=== PATIENT | female | born 1990 | race Caucasian/White ===

== ENCOUNTER → 2017-09-15 16:59 | Outpatient (CLI) | payer OTHER, SELFPAY ==
[2017-09-15 20:20] LABS: Chlamydia Trachomatis by PCR Negative (Negative); Neisserai gonorrhoeae by PCR Negative (Negative); Probe Check PASS; Sample Adequacy Control PASS; Specimen Processing Control PASS
== END ==
PROVIDERS: Visit Provider Nurse Practitioner Women's Health
DX: N89.8 Other specified noninflammatory disorders of vagina (principal)
CPT/HCPCS: 87070; 87077; 87106; 87186; 87205; 87491; 87591

== ENCOUNTER 2018-03-17 12:47 | Emergency (ER) | payer OTHER, SELFPAY ==
[2018-03-17 12:48] VITALS: BP 128/80; PULSE 73; RESP 15; TEMP 36.4; O2SAT 97; BMI 22.8
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
--- NOTE | 2018-03-17 14:43 | ED.DEP ---
ED Disposition - Plan for ED Patient: Chief Complaint: Other, Pain/Inj Referrals: Care Physician,No Primary [Primary Care Provider] - Clark Guzmán MD [STAFF PHYSICIAN] -
--- NOTE | 2018-03-17 14:45 | ED.DEP ---
ED Disposition - Plan for ED Patient: Chief Complaint: Other, Pain/Inj Instructions: ED Fx Mandible Referrals: Clark Guzmán MD [STAFF PHYSICIAN] - Care Physician,No Primary [Primary Care Provider] -
== END 2018-03-17 15:23 | disposition home or self-care (01) ==
LOC: ED 14:23
PROVIDERS: Emergency Provider Emergency Medicine
DX: R68.84 Jaw pain (principal); V43.52XA Car driver injured in collision with other type car in traffic accident, initial encounter; Y93.I9 Activity, other involving external motion; Y92.410 Unspecified street and highway as the place of occurrence of the external cause; Y99.8 Other external cause status
CPT/HCPCS: 70110; 99282

== ENCOUNTER → 2018-04-29 11:21 | Outpatient (CLI) | payer OTHER, SELFPAY ==
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
== END ==
PROVIDERS: Family Provider Family Medicine; PCP Family Medicine; Referring Provider Family Medicine; Visit Provider Family Medicine
DX: S16.1XXA Strain of muscle, fascia and tendon at neck level, initial encounter (principal)
CPT/HCPCS: 72050

== ENCOUNTER 2018-05-07 08:30 | Outpatient (RCR) | payer OTHER, SELFPAY ==
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
--- NOTE | 2018-05-07 09:20 | HP.PTREVAL_ITS ---
Clark Guzmán MD, It has been my pleasure to treat ROMAIN MCLEAN over the last 8 visits for Cervical Strain/Jaw Pain. Please see the progress note below for an update on the physical therapy plan of care! Subjective: Patient reports that she got blood work at the chiro who told her that her blood is very high levels of iron that they think are what is causing her symptoms. Physcial therapy is making very little progress and she feels its pretty muscular. She had a massage yesterday which made her feel better but not 100%- the pain comes back quickly. Objective/Function: Posture: Fh, RS- can correct but does not maintain- guarded. Gait: no deviation noted. Observation: right scapula increased winging vs. le ft. ROM: Cervical WNL- pain in all directions- greatest in forward flexion and SB to the left.- Jaw WNL but reports pain- Shoulder: WNL no pain at end ranges, Elbow/Wrist/hand: WNL. Strength: Scap: fair minus, Shoulder: 4+/5 throughout with pain with flexion and abduction. Elbow: 4+/5, Forensic Photographer: equal and strong. Palpation: significant tenderness throughout fascial musculature- including temporalis and masseter. Suboccipitals, cervical paraspinals, and lateral/anterior musculature to the neck are laden with trigger points and cause referred pain throughout UE and head. Trigger points continue through upper trap, medial border of the scapula and into the scapula. Plan Plan: Hold- will try massage and chiro with PCP for blood work results. At this time patient objective measures have not changes since initial evaluation. Goals Goal 1:: Patient will be I with HEP and progression Goal Time Frame: 4-6 Weeks Goal Progress: Progressing Goal 2:: Patient will maintain proper posture t/o tx session to demo increased scap s/s Goal Time Frame: 4-6 Weeks Goal Progress: Not Progressing Goal 3:: Patient will report no DE LA FUENTE for 1 week Goal Time Frame: 4-6 Weeks Goal Progress: Not Progressing Goal 4:: Patient will report 0/10 pain for 1 week and return to all normalized ADL's. Goal Time Frame: 4-6 Weeks Goal Progress: Not Progressing Anticipated Interventions Patient/Client Instruction: Educate patient on: Benefits of Fitness Program Therapeutic Exercise to Include: Strength training, Endurance training, Body mechanics, Postural training For the Purpose of:: To improve muscle performance and motor function Manual Therapy Techniques to Include: Mobilization, Functional dry needling, Soft tissue mobilization For the Purpose of:: To improve nutrient delivery to tissue TENS: Yes Cryotherapy (ice pack, ice massage): Yes Thermo therapy (hot pack): Yes Ultrasound (thermal/non thermal): Yes Please do not hesitate to contact me at [phone] by phone or if you have questions or concerns regarding this new plan of care! Sincerely, IMAN GarzaT
--- NOTE | 2018-08-26 10:56 | HP.PT.NRP ---
HP - Discharge Summary (1) - Patient Information ROMAIN MCLEAN was seen in my office for initial evaluation on 04/08/18. The following Plan of Care was established for this patient: Initial Frequency: 2x /Week Initial Duration: 4 Weeks - Anticipated Interventions Patient/Client Instruction: Educate patient on: Benefits of Fitness Program Therapeutic Exercise to Include: Strength training, Endurance training, Body mechanics, Postural training For the Purpose of:: To improve muscle performance and motor function Manual Therapy Techniques to Include: Mobilization, Functional dry needling, Soft tissue mobilization For the Purpose of:: To improve nutrient delivery to tissue TENS: Yes Cryotherapy (ice pack, ice massage): Yes Thermo therapy (hot pack): Yes Ultrasound (thermal/non thermal): Yes This patient was last seen in our office . Pertinent comments regarding their Physical therapy will appear below: Patient has not attended physical therapy is over 30 days- appropriate to be d/c from PT and return to MD as needed for further evaluation. At this point I will be discontinuing this patient from physical therapy. I would be happy to see this patient again in the future if found appropriate by the physician. Thank you! IMAN GarzaT
== END 2018-05-07 19:00 | disposition home or self-care (01) ==
LOC: PT 08:30
PROVIDERS: Family Provider Family Medicine; PCP Family Medicine; Referring Provider Family Medicine; Visit Provider Family Medicine
DX: S16.1XXD Strain of muscle, fascia and tendon at neck level, subsequent encounter (principal); S00.83XD Contusion of other part of head, subsequent encounter; V89.2XXD Person injured in unspecified motor-vehicle accident, traffic, subsequent encounter
CPT/HCPCS: 97035; 97140; 97162; 97164

== ENCOUNTER → 2018-05-20 13:52 | Outpatient (CLI) | payer OTHER, SELFPAY ==
[2018-05-20 14:03] VITALS: BP 106/60; PULSE 67; RESP 16; TEMP 36.9; O2SAT 96; BMI 22.8
[2018-05-20 14:30] VITALS: BP 102/61; PULSE 63
== END ==
PROVIDERS: Family Provider Family Medicine; PCP Family Medicine; Referring Provider Family Medicine; Visit Provider Family Medicine
DX: E83.119 Hemochromatosis, unspecified (principal)
CPT/HCPCS: 99195

== ENCOUNTER → 2020-08-28 13:18 | Outpatient (CLI) | payer SELFPAY ==
[2018-05-20 14:03] VITALS: BMI 22.8
== END ==
PROVIDERS: Visit Provider Student in an Organized Health Care Education/Training Program
DX: Z36.85 Encounter for antenatal screening for Streptococcus B (principal)
CPT/HCPCS: 87081

== ENCOUNTER → 2020-09-21 14:59 | Outpatient (CLI) | payer SELFPAY ==
[2018-05-20 14:03] VITALS: BMI 22.8
== END ==
PROVIDERS: Referring Provider Student in an Organized Health Care Education/Training Program; Visit Provider Student in an Organized Health Care Education/Training Program
DX: Z03.818 Encounter for observation for suspected exposure to other biological agents ruled out (principal)
CPT/HCPCS: 87635; C9803; U0005; U0003

== ENCOUNTER 2020-09-24 18:10 | Inpatient (IN) | payer SELFPAY ==
[2018-05-20 14:03] VITALS: BMI 22.8
[2020-09-24] VITALS (39 sets, daily range): BP systolic 99–135; BP diastolic 50–85; PULSE 63–112; TEMP 36.8–37.7; O2SAT 83–100; BMI 29.2
[2020-09-24] MEDS: Lactated Ringers 500 ML 999 ML IV ×2 (18:30→19:20)
[2020-09-24 18:32] LABS: Absolute Lymphocyte Count 4.31 X10^3/uL (0.83-4.51); Absolute Neutrophil Count 18.4 X10^3/uL (2.0-7.7); Basophil# 0.09 X10^3/uL; Basophil% 0.4 % (0-1); Eosinophils% 0.8 % (0-5); Hematocrit 41.2 % (37-47); Hemoglobin 13.6 g/dL (12.0-15.0); Lymphocyte # 4.31 X10^3/ul (0.83-4.51); Lymphocyte % 17.5 % (19-41); Mean Corpuscular Hgb 28.1 pg (27.0-32.0); Mean Corpuscular Volume 85.1 fL (81-99); Mean Platelet Vol. 10.3 fl (6.2-12.0); Monocyte# 1.56 X10^3/uL; Monocyte% 6.3 % (0-10); NRBC Flagged by Analyzer 0 % (0-5); Neutrophil # 18.36 X10^3/uL (2.7-7.7); Neutrophil % 74.3 % (47-70); POSITIVE DIFFERENTIAL YES; Platelet Count 521 K/mm3 (150-450); RBC Distribution Width CV 12.8 % (11.6-14.6); RBC Distribution Width SD 39.3 fl (35.1-43.9); Red Blood Count 4.84 M/mm3 (4.2-5.4); White Blood Count 24.7 K/mm3 (4.4-11.0)
[2020-09-24 18:39] LABS: Differential Indicated SCAN CRITERIA MET
[2020-09-24 19:16] LABS: Differential Comment SCANNED; Platelet Morphology LARGE
[2020-09-24] MEDS: fentaNYL-bupivacaine (epidural) 100 ML BAG EPIDURAL ×2 (19:27→23:42)
[2020-09-24] MEDS: Lactated Ringers 1,000 ML 200 ML IV ×2 (20:00→20:55)
[2020-09-25] VITALS (45 sets, daily range): BP systolic 90–146; BP diastolic 54–79; PULSE 59–116; RESP 16; TEMP 36.7–37.8; O2SAT 93–99
[2020-09-25] MEDS: Lactated Ringers 1,000 ML 200 ML IV (01:55)
[2020-09-25] MEDS: Lactated Ringers 500 ML 999 ML IV (03:04)
[2020-09-25] MEDS: fentaNYL-bupivacaine (epidural) 100 ML BAG EPIDURAL (04:56)
--- NOTE | 2020-09-25 04:56 | HP.PCM.OB_ITS ---
History and Physical Date of Admission: 09/24/20 Chief complaint: Contractions History of present illness: 29-year-old G1, P0 at 41 weeks and 0 days with MARVIN 09/18/2020 by LMP arrives with contractions. Denies headache, visual changes, chest pain, shortness of breath, nausea vomiting, right upper quadrant pain. Patient states good movement. Obstetrical history: G1: Current Past medical history: Hereditary spherocytosis Medications: None Past surgical history: Tonsils and adenoids, splenectomy, wisdom teeth extraction Social history: Denies smoking, alcohol use, drug use Allergies: Vicodin (delusions) Family history: Denies a history of DVT or PE Review of systems: Besides above pertinent positives a full review of systems was performed and found to be negative Physical exam: Vital signs: Blood pressure 105/63 pulse 84 pulse ox 99% on room air General: Normal-appearing no acute distress HEENT: Normocephalic atraumatic no cervical lymphadenopathy Cardiac/respiratory: No use of accessory muscles, nonlabored breathing Abdomen: Soft, nontender, gravid Pelvic exam: Cervical exam bulging bag 10/100/+1. AROM thin meconium Extremities: No peripheral edema normal peripheral pulses Psych: Normal affect normal demeanor nonpressured speech Assessment plan: 29-year-old G1, P0 at 41 weeks and 0 days in labor. AROM for thin meconium, educated patient on meconium and risk for aspiration. 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 now pushing. Admit labor and delivery CEFM GBS negative Hereditary spherocytosis: Will get CMP after delivery Anesthesia to see
--- NOTE | 2020-09-25 06:13 | PN_ITS ---
Progress Note Patient seen and examined, called to room for delivery. Upon evaluation cervix 10/100/+1. Educated patient that still has time for pushing. Patient currently pushing on hands and knees reexamined in supine position and cervical examination reconfirmed. Patient with minimal relief from epidural but overall mostly feeling pressure, educated patient on pressure versus sharp pains with epidural. Educated patient on pushing with contractions and positioning. We will continue pushing with contractions, coached on pushing. We will continue current management, personal investment adviser will be recontacted at time of delivery.
[2020-09-25] MEDS: Oxytocin 30 units/NS 500 ml 30 UNITS/500 ML IV.SOLN 334 UNITS IV (07:40)
[2020-09-25] MEDS: Methylergonovine 0.2 MG/ML Ampul IM (07:48)
--- NOTE | 2020-09-25 08:09 | EX.PCM.OBRPT ---
Vaginal Delivery Operative Information Date of Procedure: 09/25/20 Pre-Operative Diagnosis: Term Post-Operative Diagnosis: Term Findings Description of Procedure: Normal spontaneous vaginal delivery of a viable female , vertex RABIA. Head and shoulders delivered with ease. Cord cut clamped. Baby handed off to nursing. Placenta delivered via cord traction and fundal massage. Second-degree midline perineal laceration noted and repaired in typical fashion. EBL 400 cc urine output 100 cc. Prophylactic Methergine 0.2mg IM given
[2020-09-25] MEDS: Ibuprofen 600 MG Tablet PO ×2 (08:53→19:39)
[2020-09-25 12:13] LABS: Pathologist Review Reviewed
[2020-09-25 14:48] LABS: ALB/GLOB Ratio 0.6 RATIO (0.9-2.4); AST(SGOT) 41 U/L (15-37); Alanine Aminotransfer ALT/SGPT 20 U/L (13-56); Albumin, Serum 2.2 g/dL (3.2-5.0); Alkaline Phosphatase 159 U/L (45-117); Anion Gap 7 (5-15); BUN 5 mg/dL (7-18); BUN/Creat Ratio 8.4 RATIO (10-20); Calcium,Total 8.7 mg/dL (8.5-10.1); Chloride 109 mmol/L (98-107); Creatinine, Serum 0.59 mg/dL (0.55-1.02); EST Glomerular Filtration Rate 125 mL/min (>60); Est Glom Filt Rate - Afr Amer 152 mL/min (>60); Estimated Creatinine Clearance 115.33 ml/min; Globulin 3.4 g/dL (2.2-4.2); Glucose 120 mg/dL (74-106); Potassium 3.7 mmol/L (3.5-5.1); Protein, Total 5.6 g/dL (6.4-8.2); Sodium Level 139 mmol/L (136-145)
[2020-09-26] VITALS (9 sets, daily range): BP systolic 90–111; BP diastolic 47–67; PULSE 58–80; RESP 16–18; TEMP 36.6–36.8; O2SAT 96–97
[2020-09-26] MEDS: Ibuprofen 600 MG Tablet PO ×2 (07:14→18:46)
--- NOTE | 2020-09-26 10:25 | PCM.PN.OB ---
Subjective Subjective No overnight complaints. Pain well controlled. Objective Data Objective Data Vital Signs: Vital Signs Temp Pulse Resp BP Pulse Ox 98.3 F 58 L 16 99/57 L 96 09/26/20 08:35 09/26/20 08:35 09/26/20 08:35 09/26/20 08:35 09/26/20 08:35 Oxygen Delivery Method Room Air Weight: 165 lb 2.02 oz Body Mass Index (BMI) 29.2 Intake & Output: Intake and Output for Last 24 Hours 09/24/20 09/25/20 09/26/20 23:59 23:59 23:59 Intake Total 1176.67 / 1176.67 2998.22 / 2998.22 Output Total 400 / 400 2100 / 2100 Balance 776.67 / 776.67 898.22 / 898.22 Lab / Micro Data Result Diagrams: 09/24/20 18:20 09/25/20 13:50 Labs: Laboratory Results - last 24 hr 09/24/20 09/25/20 18:20 13:50 Diff Path Review Reviewed Sodium 139 Potassium 3.7 Chloride 109 H Carbon Dioxide 23.0 Anion Gap 7 BUN 5 L Creatinine 0.59 Estim Creat Clear Calc 115.33 Est GFR (MDRD) Af Amer 152 Est GFR (MDRD) Non-Af 125 BUN/Creatinine Ratio 8.4 L Glucose 120 H Calcium 8.7 Total Bilirubin 0.40 AST 41 H ALT 20 Alkaline Phosphatase 159 H Total Protein 5.6 L Albumin 2.2 L Globulin 3.4 Albumin/Globulin Ratio 0.6 L Physical Exam Const alert, oriented x3, no apparent distress and average body habitus HEENT normocephalic Head and Scalp: atraumatic Neck full ROM and no lymphadenopathy Resp normal respiratory effort, no retractions and no use of accessory muscles GI normal to inspection, nondistended, normoactive bowel sounds Narrative: Uterus firm and below umbilicus Extremity normal to inspection, full ROM and no clubbing, cyanosis or edema Psych mental status grossly normal, affect normal, speech normal and activity/motor behavior normal Assessment & Plan (1) : PLAN: day 1. Breast-feeding. Pain well controlled. Hereditary spherocytosis, overall labs stable. 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
--- NOTE | 2020-09-26 10:26 | PCM.DC ---
Discharge Instructions Diet Discharge Diet: No restrictions Activity Discharge Activity: Return to Normal Activity and May Shower May resume sexual activity in: 4-6 weeks Weight Bearing Status: Weight bearing as tolerated Dressing / Incision Call your doctor if your incision/area has: Continuous Slow Oozing, Sudden Increased Bleeding and Foul Smelling Discharge Call your doctor if you observe: Fever of 101 or Higher, Shortness of breath and Chest pain Follow Up Care Please Follow Up With: Sadaf Guzmán DO When: 2-week telehealth visit, 4 to 6-week visit Test Results: Test results from this visit will be discussed in further detail at your follow-up appointment, if applicable. Discharge Plan Admission Admit Date/Time: 09/24/20 18:10 Attending Provider: Kyle Guzmán Primary Care Provider: Care PhysicianLe Primary Discharge Orders/Prescriptions Prescriptions: No Action 400 mcg Tablet,Chewable 1 tab PO DAILY RF: 0 Disposition Discharge Orders: Discharge Patient (Routine); Ordered 09/26/20 Ordered By: Dr. Kyle Guzmán
[2020-09-26] MEDS: Senna/Docusate Sodium 1 Tablet PO (14:31)
--- NOTE | 2020-09-26 14:44 | CHAPLAIN ---
Type of Pastoral Visit _x__ Initial Visit ___ Follow-up Visit ___ On-call Visit ___ General Patient Visit ___ Spiritual Assessment ___ Family Conference ___ Bereavement ___ Rapid Response ___ Code Blue ___ Other (describe below) Pastoral Care Referral From ___ Patient _x__ Family ___ Nurse ___ Physician ___ Wheat Combine Driver ___ Shaving Machine Operator ___ Other (describe below) Sacrament/Intervention _x__ Active listening ___ Anointing ___ Yarsanism ___ Bereavement ___ Communion ___ Gunjan exploration ___ _x__ Life review ___ Prayer ___ Reconciliation ___ Sacrament of Sick ___ Supportive presence ___ Wedding ___ Other (describe below) Pastoral Comments
[2020-09-27 01:08] VITALS: BP 102/72; PULSE 81; RESP 18; TEMP 36.9
[2020-09-27 01:09] VITALS: BP 102/72; PULSE 81
[2020-09-27 07:46] VITALS: BP 115/56; PULSE 80
[2020-09-27 07:56] VITALS: BP 115/56; PULSE 80; RESP 16; TEMP 36.9
--- NOTE | 2020-09-27 08:31 | PN.OBGYN_ITS ---
Subjective Subjective day 2 status post . Breast-feeding. Pain controlled, lochia minimal. Per patient baby's bilirubin will be checked again this afternoon at 2 PM. Objective Data Objective Data Vital Signs: Vital Signs Temp Pulse Resp BP Pulse Ox 98.5 F 80 16 115/56 L 97 09/27/20 07:56 09/27/20 07:56 09/27/20 07:56 09/27/20 07:56 09/26/20 17:29 Oxygen Delivery Method Room Air Weight: 74.9 kg Body Mass Index (BMI) 29.2 Intake & Output: Intake and Output for Last 24 Hours 09/25/20 09/26/20 09/27/20 23:59 23:59 23:59 Intake Total 2998.22 / 2998.22 Output Total 2100 / 2100 Balance 898.22 / 898.22 Lab / Micro Data Result Diagrams: 09/24/20 18:20 09/25/20 13:50 ROS Constitutional Constitutional: Reports systems reviewed and no addt'l complaints, except as documented Eyes Eyes: Reports systems reviewed and no addt'l complaints, except as documented ENT HEENT: Reports systems reviewed and no addt'l complaints, except as documented Cardiovascular Cardiovascular: Reports systems reviewed and no addt'l complaints, except as documented Respiratory/Chest Respiratory/Chest: Reports systems reviewed and no addt'l complaints, except as documented Gastrointestinal Gastrointestinal: Reports systems reviewed and no addt'l complaints, except as documented Genitourinary Genitourinary: Reports systems reviewed and no addt'l complaints, except as documented Musculoskeletal Musculoskeletal: Reports systems reviewed and no addt'l complaints, except as documented Integumentary Integumentary: Reports systems reviewed and no addt'l complaints, except as documented Neurologic Neurologic: Reports systems reviewed and no addt'l complaints, except as documented Psychiatric Psychiatric: Reports systems reviewed and no addt'l complaints, except as doc umented Endocrine Endocrinology: Reports systems reviewed and no addt'l complaints, except as documented Hematologic/Lymphatic Hematologic/Lymphatic: Reports systems reviewed and no addt'l complaints, except as documented Allergic/Immunologic Allergic/Immunologic: Reports systems reviewed and no addt'l complaints, except as documented Physical Exam Const alert, oriented x3 and no apparent distress HEENT normocephalic Head and Scalp: atraumatic Resp normal respiratory effort Cardio regular rate GI normal to inspection, nondistended, normoactive bowel sounds GI Narrative: Uterus 2 cm below umbilicus. Firm Extremity normal to inspection Extremity Narrative: Trace pedal edema. Neuro no focal motor deficits and no sensory deficits noted Assessment & Plan (1) Vaginal delivery: PLAN: day 2. Breast-feeding. Plan to discharge home today pending baby's bilirubin check this afternoon, [facility] Very slight elevation in AST, repeat CMP ordered today. (2) Hereditary spherocytosis:
[2020-09-27] MEDS: Ibuprofen 600 MG Tablet PO (11:53)
[2020-09-27 14:50] VITALS: BP 120/55; PULSE 86; RESP 16; TEMP 37.7
[2020-09-27 14:55] VITALS: BP 120/55; PULSE 86
[2020-09-27 15:23] LABS: ALB/GLOB Ratio 0.7 RATIO (0.9-2.4); AST(SGOT) 36 U/L (15-37); Alanine Aminotransfer ALT/SGPT 26 U/L (13-56); Albumin, Serum 2.3 g/dL (3.2-5.0); Alkaline Phosphatase 119 U/L (45-117); Anion Gap 6 (5-15); BUN 5 mg/dL (7-18); BUN/Creat Ratio 9.4 RATIO (10-20); Chloride 107 mmol/L (98-107); Creatinine, Serum 0.53 mg/dL (0.55-1.02); EST Glomerular Filtration Rate 143 mL/min (>60); Est Glom Filt Rate - Afr Amer 173 mL/min (>60); Estimated Creatinine Clearance 128.39 ml/min; Globulin 3.3 g/dL (2.2-4.2); Glucose 124 mg/dL (74-106); Potassium 3.6 mmol/L (3.5-5.1); Protein, Total 5.6 g/dL (6.4-8.2); Sodium Level 141 mmol/L (136-145)
== END 2020-09-27 18:30 | disposition home or self-care (01) | DRG 807 ==
LOC: WPOUT 18:14 → WP 18:14
PROVIDERS: Student in an Organized Health Care Education/Training Program; Admitting Provider Obstetrics & Gynecology; Referring Provider Obstetrics & Gynecology; Visit Provider Obstetrics & Gynecology
DX: O99.12 Other diseases of the blood and blood-forming organs and certain disorders involving the immune mechanism complicating childbirth (principal); Z37.0 Single live birth; D58.0 Hereditary spherocytosis; Z3A.41 41 weeks gestation of pregnancy; O77.0 Labor and delivery complicated by meconium in amniotic fluid; O70.1 Second degree perineal laceration during delivery
CPT/HCPCS: 59025; 59050; 80053; 85025; 86850; 86900; 86901; 99218; J7120; G0378

== ENCOUNTER → 2023-03-12 | Outpatient (CLI) | payer SELFPAY ==
[2023-03-17 08:12] LABS: Chlamydia By Nucleic Acid AMP Negative (Negative); Gonococcus By Nucleic Acid AMP Negative (Negative)
== END | disposition home or self-care (01) ==
PROVIDERS: Referring Provider Advanced Practice Midwife; Visit Provider Advanced Practice Midwife
DX: Z34.90 Encounter for supervision of normal pregnancy, unspecified, unspecified trimester (principal)
CPT/HCPCS: 87086; 87491; 87591

== ENCOUNTER → 2023-04-01 | Outpatient (CLI) | payer SELFPAY ==
[2023-04-01 12:30] LABS: NATERA MAILED SPECIMEN
[2023-04-01 12:35] LABS: Absolute Lymphocyte Count 3.74 X10^3/uL (0.83-4.51); Absolute Neutrophil Count 13.1 X10^3/uL (2.0-7.7); Basophil# 0.07 X10^3/uL; Basophil% 0.4 % (0-1); Eosinophil# 0.33 X10^3/uL; Eosinophils% 1.8 % (0-5); Hematocrit 40.2 % (37-47); Hemoglobin 13.8 g/dL (12.0-15.0); Lymphocyte # 3.74 X10^3/ul (0.83-4.51); Lymphocyte % 20.1 % (19-41); Mean Corp Hgb Conc 34.3 g/dL (32-36); Mean Corpuscular Hgb 30.6 pg (27.0-32.0); Mean Corpuscular Volume 89.1 fL (81-99); Mean Platelet Vol. 9.5 fl (6.2-12.0); Monocyte# 1.17 X10^3/uL; Monocyte% 6.3 % (0-10); NRBC Flagged by Analyzer 0 % (0-5); Neutrophil # 13.13 X10^3/uL (2.7-7.7); Neutrophil % 70.6 % (47-70); Platelet Count 493 K/mm3 (150-450); RBC Distribution Width CV 12.7 % (11.6-14.6); RBC Distribution Width SD 41.5 fl (35.1-43.9); Red Blood Count 4.51 M/mm3 (4.2-5.4); White Blood Count 18.6 K/mm3 (4.4-11.0)
[2023-04-01 13:43] LABS: HIV - WCH Non-Reactive (Nonreactive); Hepatitis B Surface Antigen Non-Reactive (Nonreactive); Hepatitis C Antibody Non-Reactive (Nonreactive); Rubella IgG Reactive (Nonreactive); Syphilis Antibodies Non-reactive
== END | disposition home or self-care (01) ==
LOC: LAB 11:23
PROVIDERS: PCP Internal Medicine; Referring Provider Advanced Practice Midwife; Visit Provider Advanced Practice Midwife
DX: Z34.90 Encounter for supervision of normal pregnancy, unspecified, unspecified trimester (principal)
CPT/HCPCS: 36415; 85025; 86703; 86762; 86780; 86803; 86850; 86900; 86901; 87340

== ENCOUNTER → 2023-05-26 | Outpatient (CLI) | payer SELFPAY ==
--- NOTE | 2023-05-26 15:26 | US_ITS ---
EXAM: US SECOND OR THIRD TRIMESTER , TRANSABDOMINAL CLINICAL INDICATION: anatomy TECHNIQUE: Transabdominal obstetrical ultrasound of the maternal pelvis and a second or third trimester with image documentation. COMPARISON: No relevant prior studies available. FINDINGS: FETUS: There is an intrauterine gestation. HEART RATE: heart rate is 148 beats per minutes. PRESENTATION: The fetus is in a cephalic presentation. PLACENTA: Placenta is posterior. There is a marginal placenta previa present. AMNIOTIC FLUID: Unremarkable. ANATOMY: Four-chamber heart, diaphragm, stomach, three-vessel cord and cord insertion, kidneys, bladder, spine and extremities were all visualized. There is a small echogenic focus seen within the left ventricle. BIOMETRICS GESTATIONAL AGE: Gestational age 20 weeks 0 days. MARVIN: MARVIN 10/13/2023. EFW: Estimated weight 66 g. BPD: Biparietal diameter 4.7 cm age 20 weeks 0 days, 53rd percentile. HC: Head circumference 17.4 cm age 20 weeks 0 days, 40th percentile. AC: Abdominal circumference 15.6 cm age 20 weeks 5 days, 70th percentile. FL: Femur length 3.2 cm age 19 weeks 6 days, 38th percentile. MATERNAL: UTERUS: Unremarkable. No myometrial mass. CERVIX: The cervix measures 4.4 cm. ADNEXA: Unremarkable. No adnexal masses. FREE FLUID: Maximum vertical pocket of fluid 3.6 cm. US/OB Anatomy w/ Transvaginal IMPRESSION: 1. Intrauterine gestation with an average ultrasound age of 20 weeks 1 day and an ultrasound estimated due date of 10/12/2023. heart rate is 148 beats per minutes. 2. Echogenic intracardiac focus. Electronically Signed: Kaiser Chilel MD at 0:09 EST ,
--- OUTSIDE RECORDS SUMMARY | 2023-05-26 15:44 | XMS RPT_ITS | CCD ---
Author Name Unknown Address [address] [place] [address] Organization [facility] Care Team Providers Care Cmm Programmer Name Role Phone Ignacia Briceno Unavailable Unavailable IGNACIA BRICENO MD Primary Care Physician [phone] YARIEL CASTELLON, SERENITY Attending Unavailable IGNACIA BRICENO MD Primary Care Unavailable Unavailable Primary Care Provider UnavailURVASHI Win Attending Unavailable URVASHI IMLNER Referring Unavailable URVASHI MILNER Attending Unavailable Allergies Allergy Classification Reported Allergen(s) Allergy Type Date of Onset Reaction(s) Facility (1 source) Acetaminophen / HYDROcodone; Translations: [acetaminophen-hyd rocodone] Drug Allergy [facility] Medications Current Medications Medication Drug Class(es) Dates Sig (Normalized) Sig (Original) AD oral tablet (1 source) Start: 02-23-2023 take 1 tablet by mouth once daily AD oral tablet Dose = 1 tab(s), Oral, Daily, # 30 tab(s), 0 Refill(s) Start Date: 02/23/23 Status: Ordered Completed/Discontinued Medications Medication Drug Class(es) Dates Sig (Normalized) Sig (Original) PNV no.95/ferrous fum/folic ac ( ORAL) (1 source) PNV no.95/ferrou s fum/folic ac ( ORAL) Take by mouth. 0 Active Problems Active Problems Problem Classification Problem Date Documented Date Episodic/Chronic Administrative/social admission (2 sources) Encounter for blood-alcohol and blood-drug test; Translations: [Encounter for blood-alcohol and blood-drug test] Onset: 02-23-2023 Episodic Deficiency and other anemia (1 source) Hereditary spherocytosis 02-23-2023 Chronic Immunizations and screening for infectious disease (4 sources) Encounter for screening for infections with a predominantly sexual mode of transmission; Translations: [Encounter for screening for human papillomavirus (HPV)] Onset: 02-23-2023 Episodic Other female genital disorders (1 source) History of abnormal cervical Papanicolaou smear 02-23-2023 Episodic Past or Other Problems Problem Classification Problem Date Documented Da te Episodic/Chronic Unclassified (1 source) ELEVATED IRON,KETONES IN URINE Onset: 10-21-2017 NEGATED: Highlighted row has been ruled out!Unclassified (1 source) No known active problems 03-05-2023 Results Test Name Value Interpretation Reference Range Facil ity Encounters Encounter Date Encounter Type Care Provider Facility Start: 03-05-2023 End: 03-05-2023 Patient encounter procedure Urvashi Phanrios AGRICULTURAL RESEARCH TECHNICIAN.CNM Work Phone: OB/Gynecology Procedures Date Procedure Procedure Detail Performing Clinician Start: 03-05-2023 Us uterus l imited 1/> fetuses Urvashi Milner AGRICULTURAL RESEARCH TECHNICIAN.CNM Work Phone: Splenectomy SERENITY SALDIVAR MD Tonsillectomy and adenoidectomy SERENITY SALDIVAR MD Plan of Treatment Date Care Activity Detail Author Start: 12-26-2022 Influenza vaccination Influenza Vacc ine (#1) [facility] Start: 04-27-2022 Depression Assessment Depression Ass essment [facility] Start: 10-05-2019 HPV Testing HPV Testing [facility] Start: 2010 Pap Testing Pap Testing [facility] Start: 2008 Urine microalbumin profile DTa P,Tdap,Td Vaccine (1 - Tdap) [facility] Start: 10-05-2007 Hepatitis C Screening Hepatitis C Md juan ramon [facility] Start: 10-05-2007 HIV Screening HIV Screening [facility] Start: 04-05-1990 Covid-19 Vaccine (#1) Covid-19 Vacci ne (#1) [facility] Start: 1989 Hepatitis B Vaccine (1 of 3 - 3-dose series) Hepatitis B Vaccine (1 of 3 - 3-dose series) [facility] Payers Date Payer Category Payer Unknown [id number] 1989 Unknown [id number] Social History Date Type Detail Facility Start: 02-23-2023 End: 03-05-2023 Tobacco smoking status Never smoked tobacco (finding) [facility] Sex Assigned At Sex [facility] Start: 03-05-2023 Tobacco use and exposure Smokeless tobacco non-user [facility] Start: 03-05-2023 Alcohol intake Ex-drinker (finding) [facility] Start: 03-05-2023 History of Social function [facility] Start: 03-05-2023 Tobacco use panel [facility] National Score (1-100), lower number is lower risk 41 [facility] Start: 01-21-2023 [facility] Start: 1989 Sex Assigned At Not on file C [facility] Progress note 03-05-2023 Note Date & Type Note Facility 03-05-2023 Note HNO ID: [id number] Author: Urvashi Milner APRN.CNM Service: ? Author Type: Gas Plant Technician Type: Progress Notes Filed: 03/05/2023 2:55 PM Note Text: OB point of care ultrasound was performed. See imaging tab for details. Urvashi Milner APRN.CNM [facility] Progress note 03-05-2023 Note Date & Type Note Facility 03-05-2023 Note HNO ID: [id number] Author: Urvashi Milner APRN.CNM Service: ? Author Type: Gas Plant Technician Type: Progress Notes Filed: 03/05/2023 3:29 PM Note Text: INITIAL OB ASSESSMENT OB Provider: Urvashi Milner APRN CNM HPI: Maddy is a 32 year old No obstetric history on file. White here to establish Obstetrical Care. Patient's last menstrual period was 12/10/2022. from OB Dating Form. Cycles regular was planned Feb 2022- spontaneous miscarriage- no DANDC Cycles around every 36 days lasting 4 days- not heavy LMP 11/25/22- Had US and MARVIN was changed to 10/13/22 Complaints: None OB History T1 L1 SAB1 IAB0 Ectopic0 Multiple0 Live Births1 Previous history: Prior : never History of 4th degree laceration: No History of shoulder dystocia: No History of Hypertensive disorders including pre-eclampsia, chronic hypertension or gestational hypertension: No History of gestational diabetes: No Patient's Risk Screening for delivery: Have you had a prior zhang between 20w and 36w6d?: No MEDICAL/PSYCHOSOCIAL HISTORY: History of hemorrhage or bleeding concerns: No Thyroid Disease: No History of chronic hypertension: No History of pre-existing diabetes: No No results found for: ABORHD BMI 24.15 kg/(m2) History of abnormal pap: Yes Prior treatment for cervical dysplasia: none. 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 I don't have enough money to pay my bills: Never Within the past 12 months, have you worried that your food would run out before you had money to buy more: Never In the past 12 months, has lack of reliable transportation kept you from going to medical appointments or work, or from keeping things needed for daily living: Never In the past 12 months, have you had any concerns about having a place to live, or about the condition or quality of your housing: Never Are there any cultural or spiritual needs we should be aware of: No Depression/Anxiety Screening: denies symptoms of depression. OB Depression and Anxiety Screening- This Encounter (since 03/04/2023) Over the past 2 weeks have you felt down, depressed, or hopeless? Negative Over the past two weeks, have you felt little interest or pleasure in doing things?? Negative Feeling nervous, anxious or on edge 0-Not at all Not being able to stop or control worrying 0-Not al all Anxiety Pre-Screening Total (If >/= 3 additional questions will be reviewed) 0 Genetic Screening: Partner present: No Patient verbalized knowledge of partner family health history: Yes Do you or your partner have any personal or family history of defects not previously discussed: No Do you have history of a complicated by anomaly, genetic condition, or demise: No ACOG Recommended Screening Screening for early gestational diabetes testing: Criteria for early testing requires elevated BMI plus one other risk factor: BMI 24.15 kg/(m2) (risk factor if > than 25 or 23 in Americans) Additional risk factors: None She does not meet ACOG criteria for early gestational DM screening. 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 No pertinent past medical history. History reviewed. No pertinent surgical history. Current Outpatient Medications Medication Sig Dispense Refill PNV no.95/ferrous fum/folic ac ( ORAL) Take by mouth. No current facility-administered medications for this visit. Allergies As of Date: 03/05/2023 (No Known Allergies) Fully Assessed 03/05/2023 Does patient have penicillin allergy: No REVIEW OF SYSTEMS: GENERAL: Negative for: Fever or Chills and Positive for: Fatigue HEENT: Negative for: Headache, Impaired Vision, Ringing in Ears, Nosebleeds NECK: Negative for: Swelling, Pain, Stiffness RESPIRATORY: Negative for: Cough, Shortness of breath, Wheezing GASTROINTESTINAL: Negative for: Heartburn, Constipation, Diarrhea, Blood in stool, Vomiting and Positive for: Constipation [facility] (more content not included)... [facility] History of Present illness Narrative 03-05-2023 Urvashi Milner APRN.CNM - 03/05/2023 2:54 PM EST Note Date & Type Note Facility 03-05-2023 History of Presen t illness Narrative OB point of care ultrasound was performed. See imaging tab for details. Urvashi Milner APRN.CNM documented in this encounter [facility] Clinical Note 02-26-2023 Note Date & Type Note Facility 02-26-2023 Note . MICRO - Microbiology PROCEDURE: Urine Culture [*1] SOURCE: Urine, Clean Catch BODY SITE: COLLECTED DATE/TIME: 02/23/2023 17:00 EDT RECEIVED DATE/TIME: 02/24/2023 20:02 EDT START DATE/TIME: 02/24/2023 20:02 EDT FREE TEXT SOURCE: FINAL REPORTS Final Report [] Verified Date/Time/Personnel: 02/26/2023 08:05 EDT <10,000 cfu/ml. No Significant growth. Sensitivity not indicated. PRELIMINARY REPORTS Preliminary Report [] Verified Date/Time/Personnel: 02/25/2023 09:23 EDT No growth to date Performing Locations *1: This test was performed at: [facility], [address] [place] [address], [facility] , [facility] ([place]) Evaluation + Plan note Note Date & Type Note Facility Evaluation + Plan note Future Appointments Appointment Date:03/23/2023 03:45:00 PM Scheduled Provider:SERENITY SALDIVAR MD Location:[facility] Appointment Type:[facility] OB Routine Follow Up Diagnostic Tests PendingHPV Screen, DNA Probe 02/23/23 [facility] Evaluation note Note Date & Type Note Facility documented in this encounter [facility] course Narrative Note Date & Type Note Facility Hospital course Narrative No data available for this section [facility] Hospital Discharge instructions Note Date & Type Note Facility Hospital Discharge instructions No data available for this section [facility] Progress note Note Date & Type Note Facility Progress note No data available for this section [facility] Summary Purpose Family History No Family History Records Found No data available for this section No Family History Records FoundNo Family History Records Found Advance Directives No Advanced Directives Records FoundNo Advanced Directives Records FoundNo Advanced Directives Records Found Additional Source Comments INFORMATION SOURCE (unrecogn ized section and content) DATE CREATED AUTHOR AUTHOR'S ORGANIZ ATION 03/03/2023 [facility] ([place]) DATE CREATED AUTHOR AUTHOR'S ORGANIZ ATION 03/09/2023 [facility] Patient Care team informatio n (unrecognized section and content) Care Team Personnel Name: IGNACIA BRICENO MD Position: AH Physician Member Role: Primary Care Physician Address: Address: [address] [facility] [address] [place], [place] [address] Care Team Related Persons Name: PARAM MCLEAN Source Comments (unrecognize d section and content) In the event this informatio n is protected by the Federal Confidentiality of Alcohol and Drug Abuse Patient Records regulations: The Federal rules restrict any use of the information to criminally investigate or prosecute any alcohol or drug abuse patient.[facility] FOR RECORDS PERTAINING TO PATIENTS WHO ARE OR HAVE BEEN ENROLLED IN A CHEMICAL DEPENDENCY/SUBSTANCEABUSE PROGRAM, SOME INFORMATION MAY BE OMITTED. This clinical summary was aggregated from multiple sources. Caution should be exercised in using it in the provision of clinical care. This summary normalizes information from multiple sources, and as a consequence, information in this document may materially change the coding, format and clinical context of patient data. In addition, data may be omitted in some cases. CLINICAL DECISIONS SHOULD BE BASED ON THE PRIMARY CLINICAL RECORDS. [employer] [facility]. provides no warranty or guarantee of the accuracy or completeness of information in this document.
== END | disposition home or self-care (01) ==
PROVIDERS: PCP Internal Medicine; Referring Provider Obstetrics & Gynecology; Visit Provider Obstetrics & Gynecology
DX: Z34.91 Encounter for supervision of normal pregnancy, unspecified, first trimester (principal)
CPT/HCPCS: 76805; 76817

== ENCOUNTER → 2023-07-16 | Outpatient (CLI) | payer SELFPAY ==
[2023-07-16 14:55] LABS: Absolute Lymphocyte Count 3.64 X10^3/uL (0.83-4.51); Absolute Neutrophil Count 13.1 X10^3/uL (2.0-7.7); Basophil# 0.07 X10^3/uL; Basophil% 0.4 % (0-1); Eosinophil# 0.93 X10^3/uL; Eosinophils% 4.9 % (0-5); Hematocrit 35.6 % (37-47); Hemoglobin 12.3 g/dL (12.0-15.0); Lymphocyte # 3.64 X10^3/ul (0.83-4.51); Lymphocyte % 19.1 % (19-41); Mean Corp Hgb Conc 34.6 g/dL (32-36); Mean Corpuscular Hgb 30.7 pg (27.0-32.0); Mean Corpuscular Volume 88.8 fL (81-99); Mean Platelet Vol. 9.3 fl (6.2-12.0); Monocyte# 1.17 X10^3/uL; Monocyte% 6.1 % (0-10); NRBC Flagged by Analyzer 0 % (0-5); Neutrophil # 13.12 X10^3/uL (2.7-7.7); Neutrophil % 68.6 % (47-70); Platelet Count 459 K/mm3 (150-450); Red Blood Count 4.01 M/mm3 (4.2-5.4); White Blood Count 19.1 K/mm3 (4.4-11.0)
[2023-07-16 15:04] LABS: Glucose Challenge Gest 1H 50g 110 mg/dL (70-140)
[2023-07-16 15:38] LABS: HIV - WCH Non-Reactive (Nonreactive); Syphilis Antibodies Non-reactive
== END | disposition home or self-care (01) ==
PROVIDERS: Obstetrics & Gynecology; PCP Internal Medicine; Referring Provider Obstetrics & Gynecology; Visit Provider Obstetrics & Gynecology
DX: O09.90 Supervision of high risk pregnancy, unspecified, unspecified trimester (principal); Z3A.00 Weeks of gestation of pregnancy not specified
CPT/HCPCS: 36415; 82950; 85025; 86703; 86780

== ENCOUNTER → 2023-07-28 | Outpatient (CLI) | payer SELFPAY ==
--- NOTE | 2023-07-28 10:03 | US_ITS ---
STUDY: SECOND AND THIRD TRIMESTER OBSTETRICAL ULTRASOUND - LIMITED REASON FOR EXAM: Female, 32 years old 28 wk placental location LMP: 01/06/2023 PRIOR ULTRASOUND: No relevant prior comparison study available TECHNIQUE: Transabdominal pelvic ultrasound. TECHNICAL QUALITY: Adequate. FINDINGS: There is a single intrauterine fetus. The fetus is in a cephalic presentation. There is demonstrated cardiac activity with a heart rate of 125 bpm. There is a normal amniotic fluid volume. The largest amniotic fluid pocket measures 12.2 cm. The The placenta is posterior in location and is not low lying. There are Grade 1 placental changes. The cervix measures 5 cm in length. BIOMETRY: Not performed US/OB Limited (No Biometrics) IMPRESSION: Single live intrauterine . Posterior placenta. Electronically Signed: Curtis Damian MD at 6:59 EDT ,
== END | disposition home or self-care (01) ==
LOC: US 10:02
PROVIDERS: PCP Internal Medicine; Referring Provider Obstetrics & Gynecology; Visit Provider Obstetrics & Gynecology
DX: O44.22 Partial placenta previa NOS or without hemorrhage, second trimester (principal); Z3A.25 25 weeks gestation of pregnancy
CPT/HCPCS: 76815

== ENCOUNTER 2023-08-24 13:35 | Outpatient (CLI) | payer SELFPAY ==
[2023-08-24 14:36] VITALS: BMI 29.5
[2023-08-24 14:40] VITALS: BP 106/70; PULSE 95
--- NOTE | 2023-08-24 15:38 | OB.TRI.HP_ITS ---
HPI - General General Date of Service: 08/24/23 Chief Complaint: decreased movement HPI Narrative ROMAIN MCLEAN, is a 32 F who presents at 32.5 with decreased movement since last night, presents for wellbeing check denies ctx/lof/vb. Maternal Data Information MARVIN Calculator Estimated Delivery Date Method Current WG Current Estimate 10/14/23 Ultrasound #1 32w 5d PFSH PFSH Medical History Back problem Miscarriage Vaginal delivery Home Medications vitamins no.144-folic acid 400 mcg chewable tablet () 1 tab PO DAILY 09/24/20 [History Last Taken 09/23/20] Allergy/AdvReac Type Severity Reaction Status Date / Time No Known Drug Allergies AdvReac Mild Other Verified 08/13/23 09:20 Family History Mother Spherocytosis, hereditary Daughter Spherocytosis, hereditary Surgical History History of tonsillectomy and adenoidectomy S/P splenectomy Social History adopted: No household members: spouse and children number of children: 1 current occupational status: employed 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 [employer] pets and animals: Yes pets and animals: dog(s) history of recent travel: Yes ([place]) out of state: Yes out of country: No sexually active: Yes Smoking Status: Never smoker Electronic Cigarette Use: not used alcohol intake: current details: occasionally- not while substance use type: does not use well-balanced diet: daily or most days caffeine: Yes Type: coffee Number of servings: 1 eating out: rarely or never during the past year weight has: remained stable what type of physical activity do you participate in: walking frequency: daily duration: 30-45 minutes/day augusto/sabianist: Presybeterian seatbelt use: always do you feel safe at home: Yes additional social history: Xhtulmc-Lxpkl-Hcjmamkrqe Auditor 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 Date Name GA/Weeks Outcome Route Bth Weight Gen Labor Lgth Anesthesia Del Locatn Provider FOB 09/25/20 Marlyn 41 live - full term 8#8oz Female 24 ho urs epidural [facility] Dr.James Guzmán [place] Delivery Date: 09/25/20 Last Updated by: Marry Sneed epidural was not effective Visit Details Expected Delivery Route/Plan Labor Preferences- CB/BF classes: [] labor support person: [] labor intervention preferences: [] pain management options preferred: [] cut cord/dad catch: [] : [] PP control planned: [] discussed possible routes of delivery and associated risks: [] special requests: [] Plans Covid status: Flu vaccine: declines Tdap vaccine: declines Rhogam: na LARC form signed: declined movement and labor precautions reviewed. Problem list reviewed and updated with the most current plan of care details and appropriate orders placed. Relevant counseling for the gestational age provided. Continue routine care and follow up unless otherwise noted in visit notes/problem list details OB Flowsheet Initial Weight: Not Recorded Date -?-?-?-?-?-?-?-?-?-?-?-?- EGA Weight BP Urine Prot -?-?-?-?-?-?-?-?-?-?-?-?- Glucose FHR FuHt Pres Dilation -?-?-?-?-?-?-?-?-?-?-?-?- Effaced St Visit Note 03/12/23 -?-?-?-?-?-?-?-?-?-?-?-?- 9w 1d 127 lb 2 oz 100/72 -?-?-?-?-?-?-?-?-?-?-?-?- 168 -?-?-?-?-?-?-?-?-?-?-?-?- KW-CRL cons with dates. Desires NIPT KW-CRL cons with dates. Edie res NIPT. Discussed spherocytosis-declines MFM consult at this time due to being self pay. 04/07/23 -?-?-?-?-?-?-?-?-?-?-?-?- 12w 6d 133 lb 4 oz 99/62 Nega tive -?-?-?-?-?-?-?-?-?-?-?-?- Negative 150 -?-?-?-?-?-?-?-?-?-?-?-?- kw-no vb/crampin g. no concerns. having some headaches and seeing chiropractor. will call [facility] to see cost of US prior to placing order. 05/06/23 -?-?-?-?-?-?-?-?-?-?-?-?- 17w 0d 138 lb 6 oz 94/58 Nega tive -?-?-?-?-?-?-?-?-?-?-?-?- Negative 147 -?-?-?-?-?-?-?-?-?-?-?-?- JV- no cramping or spotting. plan to increase fluids for headaches. has anatomy scan at [facility] for self pay. 06/03/23 -?-?-?-?-?-?-?-?-?-?-?-?- 21w 0d 144 lb 6 oz 102/58 Nega tive -?-?-?-?-?-?-?-?-?-?-?-?- Negative 145 -?-?-?-?-?-?-?-?-?-?-?-?- JV- no lof, vagi nal bleeding, or cramping. marginal placental previa. ultrasound for 28 weeks ordered. 07/01/23 -?-?-?-?-?-?-?-?-?-?-?-?- 25w 0d 153 lb 4 oz 109/67 Nega tive -?-?-?-?-?-?-?-?-?-?-?-?- Negative 156 -?-?-?-?-?-?-?-?-?-?-?-?- JV- no lof, vagi nal bleeding, or dec fm. needs to schedule rpt scan of placenta. 07/16/23 -?-?-?-?-?-?-?-?-?-?-?-?- 27w 1d 157 lb 6 oz 106/70 Nega tive -?-?-?-?-?-?-?-?-?-?-?-?- Negative 150 28 -?-?-?-?-?-?-?-?-?-?-?-?- KW- no vb/lof/ct x. good fm. Repeat US in 2 weeks. Travel precautions, going to [place] 08/05/23 -?-?-?-?-?-?-?-?-?-?-?-?- 30w 0d 159 lb 4 oz 159 lb 6.4 oz 97/64 Negative -?-?-?-?-?-?-?-?-?-?-?-?- Negative 144 32 -?-?-?-?-?-?-?-?-?--?-?-?- JV- no complaint s today. + FM. name is a surprise. 08/13/23 -?-?-?-?-?-?-?-?-?-?-?-?- 31w 1d 161 lb 102/65 Negative -?-?-?-?-?-?-?-?-?-?-?-?- Negative 140 32 -?-?-?-?-?-?-?-?-?-?-?-?- SM- no vb lof go od fm no regular ctx larc signed Physical Exam Const alert, oriented x3 and no apparent distress Resp normal respiratory effort, normal air movement, no retractions and no use of accessory muscles Cardio regular rate and regular rhythm GI soft to palpation and non-tender Inspection: Palpation: soft Rectal Exam: deferred no CVA tenderness and external exam normal Bimanual Exam - Vag & Uterus: uterus non-tender and other gravid uterus, normal for gestational age OB / External & Speculum: Negative for herpetic lesions Manual OB Exam: estimated gestational size appropriate and presentation cephalic Amniotic Fluid: no amniotic fluid noted Extremity normal to inspection and full ROM Neuro Motor Exam: strength 5/5 throughout and muscle tone normal throughout Deep Tendon Reflexes: Rt Patellar (L4): 2+ and Lt Patellar (L4): 2+ NST FHR Rate Baby A Baseline: 140 Variability:: Moderate Accelerations:: 15 x 15 Decelerations:: None NST Reactive:: Yes FHR Category:: Category I Assessment & Plan (1) Decreased movement: COMMENT: reactive NST PLAN: Patient presents for triage evaluation secondary to decreased movement. PO hydrated for non painful contractions, not dilated. FHT: Moderate variability reactive no decelerations category I tracing [place]: irreg Contractions Assessment and plan: Reactive NST, reassuring maternal and status patient discharged to home to follow-up in office. See problem list details for additional plan information. Charges/Coding Visit Charges Office Visits / Consults: 58054 OP Consult L3 Procedures Urinary/Genital 52xxx-59xxx: 53462-45 non-stress test Interp Multi Select Codes Urinary/Genital Urinary/Genital CPT Codes: 14143-35 non-stress test Interp
== END 2023-08-24 15:42 | disposition home or self-care (01) ==
LOC: WPOUT 13:41 → WP 13:41
PROVIDERS: PCP Internal Medicine; Referring Provider Registered Nurse; Visit Provider Registered Nurse
DX: O36.8130 Decreased fetal movements, third trimester, not applicable or unspecified (principal); Z3A.32 32 weeks gestation of pregnancy
CPT/HCPCS: 59025; 59050; 99221; G0378

== ENCOUNTER → 2023-09-17 | Outpatient (CLI) | payer SELFPAY | END | disposition home or self-care (01) | LOC: LABSPEC 16:58 | PROVIDERS: PCP Internal Medicine; Referring Provider Obstetrics & Gynecology; Visit Provider Obstetrics & Gynecology | DX: O09.90 Supervision of high risk pregnancy, unspecified, unspecified trimester (principal); Z3A.00 Weeks of gestation of pregnancy not specified | CPT/HCPCS: 87081 ==

== ENCOUNTER 2023-10-21 19:29 | Inpatient (IN) | payer SELFPAY ==
[2023-10-21] VITALS (12 sets, daily range): BP systolic 107–132; BP diastolic 55–80; PULSE 66–101; RESP 16; TEMP 36.3–36.6; O2SAT 94–100; BMI 29.8
[2023-10-21] MEDS: Lactated Ringers 1,000 ML 50 ML IV (19:35)
[2023-10-21 19:58] LABS: Absolute Lymphocyte Count 5.67 X10^3/uL (0.83-4.51); Absolute Neutrophil Count 13.3 X10^3/uL (2.0-7.7); Basophil# 0.09 X10^3/uL; Basophil% 0.4 % (0-1); Eosinophil# 0.39 X10^3/uL; Eosinophils% 1.9 % (0-5); Hematocrit 36.9 % (37-47); Hemoglobin 12.3 g/dL (12.0-15.0); Lymphocyte # 5.67 X10^3/ul (0.83-4.51); Lymphocyte % 26.9 % (19-41); Mean Corp Hgb Conc 33.3 g/dL (32-36); Mean Corpuscular Volume 81.1 fL (81-99); Mean Platelet Vol. 9.7 fl (6.2-12.0); Monocyte# 1.47 X10^3/uL; NRBC Flagged by Analyzer 0 % (0-5); Neutrophil # 13.26 X10^3/uL (2.7-7.7); Neutrophil % 62.9 % (47-70); POSITIVE DIFFERENTIAL YES; Platelet Count 590 K/mm3 (150-450); RBC Distribution Width CV 13.3 % (11.6-14.6); RBC Distribution Width SD 39.3 fl (35.1-43.9); Red Blood Count 4.55 M/mm3 (4.2-5.4); White Blood Count 21.1 K/mm3 (4.4-11.0)
[2023-10-21 20:02] LABS: Differential Indicated SCAN CRITERIA MET
[2023-10-21 20:28] LABS: Differential Comment SCANNED
[2023-10-21 20:39] LABS: Syphilis Antibodies Non-reactive
--- NOTE | 2023-10-21 21:13 | HP.PCM.OB_ITS ---
HPI - General General Date of Admission: 10/21/23 HPI Narrative ROMAIN MCLEAN, is a 33 F who presents IAL no vb lof admits good fm now 5-6 cm. IAL. 41 weeks Maternal Data Information MARVIN Calculator Estimated Delivery Date Method Current WG Current Estimate 10/14/23 Ultrasound #1 41w 0d PFSH PFSH Medical History Back problem Miscarriage Vaginal delivery Allergy/AdvReac Type Severity Reaction Status Date / Time No Known Drug Allergies AdvReac Mild Other Verified 10/21/23 19:28 Family History Mother Spherocytosis, hereditary Daughter Spherocytosis, hereditary Surgical History History of tonsillectomy and adenoidectomy S/P splenectomy Social History adopted: No household members: spouse and children number of children: 1 current occupational status: employed 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 [employer] pets and animals: Yes pets and animals: dog(s) history of recent travel: Yes ([place]) out of state: Yes out of country: No sexually active: Yes Smoking Status: Never smoker Electronic Cigarette Use: not used alcohol intake: current details: occasionally- not while substance use type: does not use well-balanced diet: daily or most days caffeine: Yes Type: coffee Number of servings: 1 eating out: rarely or never during the past year weight has: remained stable what type of physical activity do you participate in: walking frequency: daily duration: 30-45 minutes/day augusto/methodist: Methodist seatbelt use: always do you feel safe at home: Yes additional social history: Isbytdh-Ebarz-Fyoewthmha 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 Date Name GA/Weeks Outcome Route Bth Weight Infant Gen Labor Lgth Anesthesia Del Locatn Provider FOB 09/25/20 Emersen 41 live - full term 8#8oz Female 24 ho urs epidural [facility] Dr.James Ramirez [place] Delivery Date: 09/25/20 Last Updated by: Marry Sneed epidural was not effective Visit Details Expected Delivery Route/Plan Labor Preferences- CB/BF classes: labor support person: kelli, mother- Igancio Mclean labor intervention preferences: [] pain management options preferred: epidural wasnt effective last time. has hist ory of spinal fusion. open to anything. cut cord/dad catch yes : yes PP control planned: NFP discussed possible routes of delivery and associated risks: [] special requests: [] Plans Covid status: Flu vaccine: declines Tdap vaccine: declines Rhogam: na LARC form signed: declined movement and labor precautions reviewed. Problem list reviewed and updated with the most current plan of care details and appropriate orders placed. Relevant counseling for the gestational age provided. Continue routine care and follow up unless otherwise noted in visit notes/problem list details OB Flowsheet Initial Weight: Not Recorded Date -?-?-?-?-?-?-?-?-?-?-?-?- EGA Weight BP Urine Prot -?-?-?-?-?-?-?-?-?-?-?-?- Glucose FHR FuHt Pres Dilation -?-?-?-?-?-?-?-?-?-?-?-?- Effaced St Visit Note 03/12/23 -?-?-?-?-?-?-?-?-?-?-?-?- 9w 1d 127 lb 2 oz 100/72 -?-?-?-?-?-?-?-?-?-?-?-?- 168 -?-?-?-?-?-?-?-?-?-?-?-?- KW-CRL cons with dates. Desires NIPT KW-CRL cons with dates. Edie res NIPT. Discussed spherocytosis-declines MFM consult at this time due to being self pay. 04/07/23 -?-?-?-?-?-?-?-?-?-?-?-?- 12w 6d 133 lb 4 oz 99/62 Nega tive -?-?-?-?-?-?-?-?-?-?-?-?- Negative 150 -?-?-?-?-?-?-?-?-?-?-?-?- kw-no vb/crampin g. no concerns. having some headaches and seeing chiropractor. will call [facility] to see cost of US prior to placing order. 05/06/23 -?-?-?-?-?-?-?-?-?-?-?-?- 17w 0d 138 lb 6 oz 94/58 Nega tive -?-?-?-?-?-?-?-?-?-?-?-?- Negative 147 -?-?-?-?-?-?-?-?-?-?-?-?- JV- no cramping or spotting. plan to increase fluids for headaches. has anatomy scan at [facility] for self pay. 06/03/23 -?-?-?-?-?-?-?-?-?-?-?-?- 21w 0d 144 lb 6 oz 102/58 Nega tive -?-?-?-?-?-?-?-?-?-?-?-?- Negative 145 -?-?-?-?-?-?-?-?-?-?-?-?- JV- no lof, vagi nal bleeding, or cramping. marginal placental previa. ultras ound for 28 weeks ordered. 07/01/23 -?-?-?-?-?-?-?-?-?-?-?-?- 25w 0d 153 lb 4 oz 109/67 Nega tive -?-?-?-?-?-?-?-?-?-?-?-?- Negative 156 -?-?-?-?-?-?-?-?-?-?-?-?- JV- no lof, vagi nal bleeding, or dec fm. needs to schedule rpt scan of placenta. 07/16/23 -?-?-?-?-?-?-?-?-?-?-?-?- 27w 1d 157 lb 6 oz 106/70 Nega tive -?-?-?-?-?-?-?-?-?-?-?-?- Negative 150 28 -?-?-?-?-?-?-?-?-?-?-?-?- KW- no vb/lof/ct x. good fm. Repeat US in 2 weeks. Travel precautions, going to [place] 08/05/23 -?-?-?-?-?-?-?-?-?-?-?-?- 30w 0d 159 lb 4 oz 159 lb 6.4 oz 97/64 Negative -?-?-?-?-?-?-?-?-?-?-?-?- Negative 144 32 -?-?-?-?-?-?-?-?-?-?-?-?- JV- no complaint s today. + FM. name is a surprise. 08/13/23 -?-?-?-?-?-?-?-?-?-?-?-?- 31w 1d 161 lb 102/65 Negative -?--?-?-?-?-?-?-?-?-?-?-?- Negative 140 32 -?-?-?-?-?-?-?-?-?-?-?-?- SM- no vb lof go od fm no regular ctx larc signed 08/26/23 -?-?-?-?-?-?-?-?-?-?-?-?- 33w 0d 160 lb 2 oz 104/64 Nega tive -?-?-?-?-?-?-?-?-?-?-?-?- Negative 143 33 -?-?-?-?-?-?-?-?-?-?-?-?- JV- no lof, vagi nal bleeding, or dec. (was on l&D 08/23 for dec fm. 09/10/23 -?-?-?-?-?-?-?-?-?-?-?-?- 35w 1d 161 lb 94/64 Negative -?-?-?-?-?-?-?-?-?-?-?-?- Negative 150 35 Cephalic -?-?-?-?-?-?-?-?-?-?-?-?- SM- no vb lof go od fm no regular ctx 09/17/23 -?-?-?-?-?-?-?-?-?-?-?-?- 36w 1d 161 lb 92/57 -?-?-?-?-?-?-?-?-?-?-?-?- 150 36 Cephalic 1 -?-?-?-?-?-?-?-?-?-?-?-?- SM- no vb lof go od fm no regular ctx 09/24/23 -?-?-?-?-?-?-?-?-?-?-?-?- 37w 1d 162 lb 104/70 Negative -?-?-?-?-?-?-?-?-?-?-?-?- Negative 140 37 Cephalic -?-?-?-?-?-?-?-?-?-?-?-?- SM- no vb lof go od fm n oregular ctx 10/01/23 -?-?-?-?-?-?-?-?-?-?-?-?- 38w 1d 163 lb 2 oz 104/69 Nega tive -?-?-?-?-?-?-?-?-?-?-?-?- Negative 153 38 Cephalic 1 -?-?-?-?-?-?-?-?-?-?-?-?- -3 JV- no l of, vaginal bleeding, or dec fm. no effacement but dilated 1 . labor precautions discussed. pt does not want IOL if possible. 10/08/23 -?-?-?-?-?-?-?-?-?-?-?-?- 39w 1d 164 lb 107/72 Negative -?-?-?-?-?-?-?-?-?-?-?-?- Negative 150 39 Cephalic 1 .5 -?-?-?-?-?-?-?-?-?-?-?-?- SM- no vb lof go od fm no regular ctx 10/13/23 -?-?-?-?-?-?-?-?-?-?-?-?- 39w 6d 166 lb 8 oz 118/83 Nega tive -?-?-?-?-?-?-?-?-?-?-?-?- Negative 145 38 Cephalic 3 -?-?-?-?-?-?-?-?-?-?-?-?- 80 -2 JV- no lof , vaginal bleeding or dec fm. wants to go to 42 weeks. plan nst and gerald if still next week. NST FHR Rate Baby A Baseline: 140 Variability:: Moderate Accelerations:: 15 x 15 Decelerations:: None NST Reactive:: Yes FHR Category:: Category I Uterine Activity:: q3-5 ROS Constitutional Constitutional: Reports systems reviewed and no addt'l complaints, except as documented ENT HEENT: Reports systems reviewed and no addt'l complaints, except as documented Cardiovascular Cardiovascular: Reports systems reviewed and no addt'l complaints, except as d ocumented Respiratory/Chest Respiratory/Chest: Reports systems reviewed and no addt'l complaints, except as documented Gastrointestinal Gastrointestinal: Reports systems reviewed and no addt'l complaints, except as documented and nausea; Denies abdominal pain Genitourinary Genitourinary: Reports systems reviewed and no addt'l complaints, except as documented, contractions Details: present and frequency (regular ) and movement Details: present Musculoskeletal Musculoskeletal: Reports systems reviewed and no addt'l complaints, except as documented Integumentary Integumentary: Reports as per HPI Neurologic Neurologic: Reports systems reviewed and no addt'l complaints, except as documented Endocrine Endocrinology: Reports systems reviewed and no addt'l complaints, except as documented Vital Signs Vital Signs Vital Signs: 10/21/23 19:52 10/21/23 19:52 10/21/23 19:52 Temperature Temperature Source Temporal Pulse Rate 69 Respiratory Rate Blood Pressure 126/80 H BP Systolic 126 BP Diastolic 80 10/21/23 19:52 10/21/23 19:52 Temperature 97.3 F L Temperature Source Pulse Rate Respiratory Rate 16 Blood Pressure BP Systolic BP Diastolic Weight Weight: 163 lb Body Mass Index (BMI) 29.8 Physical Exam Const alert, oriented x3 and healthy appearing Constitutional Narrative: uncomfortable with contractions HEENT normocephalic and moist oral mucous membranes Head and Scalp: atraumatic Neck full ROM, no lymphadenopathy, supple and thyroid normal General: trachea midline Thyroid: thyroid normal Lymph Lymphatic: no lymphadenopathy noted Chest inspection of chest normal Resp normal respiratory effort Cardio regular rate GI normal to inspection, nondistended, normoactive bowel sounds, soft to palpation and non-tender Inspection: gravid external exam normal Bimanual Exam - Vag & Uterus: uterus non-tender Manual OB Exam: estimated gestational size appropriate, presentation cephalic, dilated, effaced and station Extremity normal to inspection General Extremity: Negative for edema Skin no rashes or lesions noted Neuro deep tendon reflexes 2+ bilaterally Motor Exam: strength 5/5 throughout and clonus absent Psych mental status grossly normal Labs Labs Labs: Blood Type B POSITIVE Antibody Screen NEGATIVE Hct 36.9 % (37-47) L Hgb 12.3 g/dL (12.0-15.0) Obstetrics Ultrasound Syphilis Total Ab Non-reactive Rubella IgG Antibody Reactive (Nonreactive) Hep Bs Antigen Non-Reactive (Nonreactive) Hepatitis C Antibody Non-Reactive (Nonreactive) Chlamydia DNA (FOREIGN) Negative (Negative) N.gonorrhoeae DNA (FOREIGN) Negative (Negative) HIV 1&2 Antibody Non-Reactive (Nonreactive) Glucose 1 Hr 50 gm 110 mg/dL (70-140) Assessment & Plan (1) History of miscarriage, currently : (2) Supervision of high-risk : COMMENT: PRR , MARVIN 10/14/23,boy KEN Cline, Kelli (3) : QUALIFIERS: Weeks of gestation: 41 weeks Qualified Code(s): O48.0 - Post-term ; Z3A.41 - 41 weeks gestation of COMMENT: Neg GBS. NIPT low risk declined carrier and ntd screen nl anatomy. (4) Hereditary spherocytosis: COMMENT: DO NOT GIVE IRON. discussed early US with MFM and hematology consult. Declines at this time due to self pay. Needs anatomy US with MFM. PLAN: Plan Patient presents IAL, plan expectant management for , srom Pain management: minimal intervention. GBS neg. Management of any complications: none I have reviewed the [facility] and made any clinically relevant updates.
[2023-10-21] MEDS: Lactated Ringers 1,000 ML 999 ML IV (23:14)
[2023-10-22] VITALS (25 sets, daily range): BP systolic 96–128; BP diastolic 57–95; PULSE 63–107; RESP 16–18; TEMP 36.2–36.9; O2SAT 95–99
[2023-10-22] MEDS: fentaNYL-bupivacaine (epidural) 100 ML BAG EPIDURAL (00:16)
--- NOTE | 2023-10-22 00:27 | PCM.PN.BLA ---
Progress Note patient OP- patient got epidural and attempted rotation failed. will continue expectant management and start pushing. cat II tracing with variables overall reassuring. now complete
[2023-10-22] MEDS: Oxytocin 15 Units/NS 250ml 15 UNITS/250 ML IV.SOLN 334 UNITS IV (02:57)
--- NOTE | 2023-10-22 03:17 | OP.PCM_ITS ---
Assessment & Plan (1) Active labor at term: (2) History of miscarriage, currently : (3) Supervision of high-risk : COMMENT: PRR , MARVIN 10/14/23,boy KEN Cline, Gumaro (4) : QUALIFIERS: Weeks of gestation: 41 weeks Qualified Code(s): O48.0 - Post-term ; Z3A.41 - 41 weeks gestation of COMMENT: Neg GBS. NIPT low risk declined carrier and ntd screen nl anatomy. (5) Hereditary spherocytosis: COMMENT: DO NOT GIVE IRON. discussed early US with MFM and hematology consult. Declines at this time due to self pay. Needs anatomy US with MFM. (6) Vaginal delivery: COMMENT: SM IAL 41 boy sidra Maternal Data Information MARVIN Calculator Estimated Delivery Date Method Current WG Current Estimate 10/14/23 Ultrasound #1 41w 1d Vaginal Delivery Operative Information Pre-Operative Diagnosis: see a/p diagnoses Post-Operative Diagnosis: same Surgery / Procedure Performed: Spontaneous Vaginal Delivery Type of Anesthesia: Epidural Special Medications: none Estimated Blood Loss: 200 Fluids Replaced: crystalloid Findings Description of Procedure: Patient began pushing and delivered the head in the RABIA presentation. The head was delivered atraumatically . The anterior and posterior shoulders delivered without complication followed by the rest of the infant and the infant was placed on the maternal abdomen. Delayed cord clamping was employed for approximately 60 seconds. Cord was clamped and cut and gentle traction was applied to the cord and the placenta delivered spontaneously immediately following it was noted to be intact with three-vessel cord with a true knot present. The perineum and vagina were inspected and noted to have a second degree perineal laceration which was repaired in the usual fashion with 3-0 vi cryl rapide. . EBL was 300. Patient and infant tolerated delivery well. Amniotic Fluid Description: Thick meconium Placental Delivery Description: Spontaneous Placenta Disposition: [facility] Cord Vessel Description: 3 Vessels Cord Entanglement: True Knot(s) Delayed Cord Clamping: Yes Post Vaginal Delivery Medications Given After Delivery: IV Pitocin Episiotomy Description: None Complication Complications: None Procedures Urinary/Genital 52xxx-59xxx: 33639 Vaginal Delivery [facility]
--- NOTE | 2023-10-22 03:20 | DCINST_ITS ---
Discharge Instructions Diet Discharge Diet: No restrictions Activity Discharge Activity: Return to Normal Activity, May Not Drive (while taking narcotic pain medications.) and May Shower May resume sexual activity in: 4-6 weeks Dressing / Incision Call your doctor if your incision/area has: Continuous Slow Oozing, Sudden Increased Bleeding, Increased Pain/ Swelling, Increased Redness and Foul Smelling Discharge Follow Up Care Please Follow Up With: Michelle Handy MD When: Call [phone] to make an appointment with your doctor in 6 weeks. If you had elevated blood pressure or 4th degree laceration, you will need to be seen in 2 weeks. Test Results: Test results from this visit will be discussed in further detail at your follow- up appointment, if applicable. Discharge Plan Admission Admit Date/Time: 10/21/23 19:29 Attending Provider: Michelle Handy Primary Care Provider: Chen Nuñez Discharge Orders/Prescriptions Referrals / Follow Up: Chen Nuñez MD [Primary Care Provider] -
[2023-10-22] MEDS: Oxytocin 15 Units/NS 250ml 15 UNITS/250 ML IV.SOLN 83 UNITS IV (03:27)
[2023-10-22] MEDS: Naproxen 500 MG Tablet PO ×2 (10:30→19:00)
--- NOTE | 2023-10-22 13:40 | NURSING ---
assisted to BR to void.
[2023-10-22] MEDS: Acetaminophen 500 MG Tablet 1000 MG PO (16:00)
[2023-10-22] MEDS: Benzocaine/Lanolin/Aloe Vera 1 SPRAY EACH TOPICAL (19:55)
[2023-10-23] MEDS: Acetaminophen 500 MG Tablet 1000 MG PO (00:21)
[2023-10-23] MEDS: Naproxen 500 MG Tablet PO ×2 (02:44→15:24)
[2023-10-23 03:43] VITALS: BP 131/95; PULSE 84; RESP 16; TEMP 36.5; O2SAT 99
[2023-10-23 08:30] VITALS: BP 115/74; PULSE 80; RESP 16; TEMP 36.4
--- NOTE | 2023-10-23 09:20 | PCM.PN.OB ---
Subjective Subjective Patient doing well without complaints. Tolerating PO. Ambulating and voiding without difficulty. feeding well. Denies chest pain, shortness of breath, calf pain/swelling, fevers, chills, lightheadedness. Objective Data Objective Data Vital Signs: Vital Signs Temp Pulse Resp BP Pulse Ox O2 Del Method 97.7 F L 84 16 131/95 H 99 Room Air 10/23/23 03:43 10/23/23 03:43 10/23/23 03:43 10/23/23 03:43 10/23/23 03:43 10/23/23 03:43 Oxygen Delivery Method Room Air Weight: 163 lb Body Mass Index (BMI) 29.8 Intake & Output: Intake and Output for Last 24 Hours 10/21/23 10/22/23 10/23/23 23:59 23:59 23:59 Intake Total 1779.5 / 1779.5 Output Total 450 / 450 Balance 1329.5 / 1329.5 Lab / Micro Data 10/21/23 19:35 ROS Constitutional Constitutional: Reports systems reviewed and no addt'l complaints, except as documented Cardiovascular Cardiovascular: Reports systems reviewed and no addt'l complaints, except as documented Respiratory/Chest Respiratory/Chest: Reports systems reviewed and no addt'l complaints, except as documented Gastrointestinal Gastrointestinal: Reports systems reviewed and no addt'l complaints, except as documented Physical Exam Const alert, oriented x3 and no apparent distress HEENT Head and Scalp: atraumatic Resp normal respiratory effort GI soft to palpation and non-tender Bimanual Exam - Vag & Uterus: uterus non-tender Uterus Palpation: uterus fundus firm (below Umbilicus) Assessment & Plan (1) Vaginal delivery: COMMENT: SM IAL 41 boy sidra PLAN: Plan s/p PPD # 1 1. routine post delivery care 2. breast feeding- support given 3. rh positive 4. rubella immune
[2023-10-23] MEDS: Senna/Docusate Sodium 1 Tablet PO (11:10)
[2023-10-23 14:40] VITALS: BP 106/64; PULSE 61; RESP 16; TEMP 36.6
--- NOTE | 2023-10-23 15:55 | CHAPLAIN ---
Type of Pastoral Visit _x__ Initial Visit ___ Follow-up Visit ___ On-call Visit ___ General Patient Visit ___ Spiritual Assessment ___ Family Conference ___ Bereavement ___ Rapid Response ___ Code Blue ___ Other (describe below) Pastoral Care Referral From ___ Patient _x__ Family ___ Nurse ___ Physician ___ Eviction Specialist ___ Tobacco Dipper ___ Other (describe below) Sacrament/Intervention _x__ Active listening ___ Anointing ___ Episcopal ___ Bereavement ___ Communion ___ Gunjan exploration ___ _x__ Life review _x__ Prayer ___ Reconciliation ___ Sacrament of Sick ___ Supportive presence ___ Wedding ___ Other (describe below) Pastoral Comments patient and her family are 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
[2023-10-23 20:15] VITALS: BP 103/65; PULSE 68; RESP 16
[2023-10-24 02:37] VITALS: BP 125/70; PULSE 65; RESP 16; O2SAT 99
--- NOTE | 2023-10-24 07:13 | PCM.PN.OB ---
Subjective Subjective Patient doing well without complaints. Tolerating PO. Ambulating and voiding without difficulty. feeding well. Denies chest pain, shortness of breath, calf pain/swelling, fevers, chills, lightheadedness. Objective Data Objective Data Vital Signs: Vital Signs Temp Pulse Resp BP Pulse Ox O2 Del Method 98 F 65 16 125/70 H 99 Room Air 10/23/23 14:40 10/24/23 02:37 10/24/23 02:37 10/24/23 02:37 10/24/23 02:37 10/24/23 02:37 Oxygen Delivery Method Room Air Weight: 163 lb Body Mass Index (BMI) 29.8 Intake & Output: Intake and Output for Last 24 Hours 10/22/23 10/23/23 10/24/23 23:59 23:59 23:59 Intake Total 1779.5 / 1779.5 Output Total 450 / 450 Balance 1329.5 / 1329.5 Lab / Micro Data 10/21/23 19:35 ROS Constitutional Constitutional: Reports systems reviewed and no addt'l complaints, except as documented ENT HEENT: Reports systems reviewed and no addt'l complaints, except as documented Cardiovascular Cardiovascular: Reports systems reviewed and no addt'l complaints, except as documented Respiratory/Chest Respiratory/Chest: Reports systems reviewed and no addt'l complaints, except as documented Gastrointestinal Gastrointestinal: Reports systems reviewed and no addt'l complaints, except as documented and nausea; Denies abdominal pain Genitourinary Genitourinary: Reports systems reviewed and no addt'l complaints, except as documented, contractions Details: present and frequency (regular ) and movement Details: present Musculoskeletal Musculoskeletal: Reports systems reviewed and no addt'l complaints, except as documented Integumentary Integumentary: Reports as per HPI Neurologic Neurologic: Reports systems reviewed and no addt'l complaints, except as documented Endocrine Endocrinology: Reports systems reviewed and no addt'l complaints, except as documented Physical Exam Const alert, oriented x3, no apparent distress and healthy appearing Constitutional Narrative: uncomfortable with contractions HEENT normocephalic and moist oral mucous membranes Neck full ROM, no lymphadenopathy, supple and thyroid normal General: trachea midline Thyroid: thyroid normal Lymph Lymphatic: no lymphadenopathy noted Chest inspection of chest normal Resp normal respiratory effort Cardio regular rate GI normal to inspection, nondistended, normoactive bowel sounds, soft to palpation and non-tender Inspection: gravid external exam normal Bimanual Exam - Vag & Uterus: uterus non-tender Manual OB Exam: estimated gestational size appropriate, presentation cephalic, dilated, effaced and station Uterus Palpation: uterus fundus firm (below Umbilicus) Extremity normal to inspection General Extremity: Negative for edema Skin no rashes or lesions noted Neuro deep tendon reflexes 2+ bilaterally Motor Exam: strength 5/5 throughout and clonus absent Psych mental status grossly normal Assessment & Plan (1) Vaginal delivery: COMMENT: SM IAL 40 [place] PLAN: Plan s/p PPD # 2 1. routine post delivery care 2. breast feeding- support given 3. rh positive 4. rubella immune
[2023-10-24 08:00] VITALS: BP 109/81; PULSE 81; RESP 16; TEMP 36.4
[2023-10-24] MEDS: Senna/Docusate Sodium 1 Tablet PO (10:15)
== END 2023-10-24 15:00 | disposition home or self-care (01) | DRG 807 ==
LOC: WPOUT 19:29 → WP 19:59
PROVIDERS: Admitting Provider Obstetrics & Gynecology; PCP Internal Medicine; Visit Provider Obstetrics & Gynecology
DX: O48.0 Post-term pregnancy (principal); Z37.0 Single live birth; O26.23 Pregnancy care for patient with recurrent pregnancy loss, third trimester; D58.0 Hereditary spherocytosis; Z3A.41 41 weeks gestation of pregnancy; O70.1 Second degree perineal laceration during delivery; O77.0 Labor and delivery complicated by meconium in amniotic fluid; O99.02 Anemia complicating childbirth
CPT/HCPCS: 59025; 59050; 85025; 86780; 86850; 86900; 86901; 99221; J7120; G0378